=== PATIENT | female | born 1940 | race Caucasian/White ===

== ENCOUNTER 2019-03-07 10:02 | Emergency (ER) | payer MEDICARE ==
[~2019-03-07] VITALS: Ht 162.6 cm; Wt 60.0 kg
[~2019-03-07 10:02] MED LIST: ASPIRIN81 MG OR; BENAZEPRIL20 M1 OR; CALTRATE 602 OR; E400400 UNIT OR; EFFIENT10 MG OR; LIPITOR40 MG OR; METFORMIN850 MG OR; METOPROLOL100 M1 OR; PREMARIN0.3 MG OR; PRILOSEC20 MG OR; VITAMIN C500 M2 OR; ZEGERID1 CAP OR
[2019-03-07] MEDS ORDERED: METOPROLOL TAR100 MG PO (11:04)
[2019-03-07] MEDS ORDERED: ATORVASTATIN CA80 MG PO (11:05)
[2019-03-07] MEDS ORDERED: BENAZEPRIL40 M1 PO (11:05)
[2019-03-07] MEDS ORDERED: GLIPIZIDE10 M2 PO (11:05)
[2019-03-07] MEDS ORDERED: BRILINTA60 MG PO (11:06)
[2019-03-07] MEDS ORDERED: TRULICITY0.75 MG/0. IJ (11:06)
[2019-03-07] MEDS ORDERED: HYDROCHLOROT12.5 M1 PO (11:07)
[2019-03-07] MEDS ORDERED: METRONIDAZOL500 MG PO (11:23)
[2019-03-07] MEDS ORDERED: DOXYCYC MONO100 M2 PO (11:23)
[2019-03-07 11:49] VITALS: BP 135/53
== END 2019-03-07 11:56 | disposition home or self-care (01) ==
LOC: ED 10:02
PROC: 0HQGXZZ Repair Left Hand Skin, External Approach (ICD-10-PCS; principal; 2019-03-07)
DX: S61.452A Open bite of left hand, initial encounter (principal); R22.31 Localized swelling, mass and lump, right upper limb; I25.10 Atherosclerotic heart disease of native coronary artery without angina pectoris; I10 Essential (primary) hypertension; E11.9 Type 2 diabetes mellitus without complications; W54.0XXA Bitten by dog, initial encounter; Y92.009 Unspecified place in unspecified non-institutional (private) residence as the place of occurrence of the external cause; Z79.84 Long term (current) use of oral hypoglycemic drugs; Z88.0 Allergy status to penicillin

== ENCOUNTER 2019-03-08 09:34 | Emergency (ER) | payer MEDICARE ==
[~2019-03-08] VITALS: Ht 162.6 cm; Wt 60.0 kg
[~2019-03-08 09:34] MED LIST changes: +ATORVASTATIN CA80 MG PO; +BENAZEPRIL40 M1 PO; +BRILINTA60 MG PO; +DOXYCYC MONO100 M2 PO; +GLIPIZIDE10 M2 PO; +HYDROCHLOROT12.5 M1 PO; +METOPROLOL TAR100 MG PO; +METRONIDAZOL500 MG PO; +TRULICITY0.75 MG/0. IJ
[2019-03-08 10:28] VITALS: BP 115/53
== END 2019-03-08 10:28 | disposition home or self-care (01) ==
LOC: ED 09:34
DX: S61.452D Open bite of left hand, subsequent encounter (principal); W54.0XXD Bitten by dog, subsequent encounter